=== PATIENT | male | born 1960 | race African-American/Black ===

== ENCOUNTER 2017-03-27 19:40 | Inpatient (IN) | payer OTHER, SELFPAY ==
[~2017-03-27 19:40] MED LIST: ISOVUE-370 76%-LOCM 1 ML ONE; Iopamidol 370 76% 50 ML VIAL FS ONE
[2017-03-27 20:59] LABS: #Lymphocytes 0.8 thou/uL (1.20-3.40); #Monocytes 0.1 thou/uL (0.11-0.59); #Neutrophils 6.7 thou/uL (1.40-6.50); %Basophils 0.6 % (0.0-1.0); %Eosinophils 0.3 % (0.0-10.0); %Lymphocytes 10.9 % (21.0-51.0); %Monocytes 1.1 % (0.0-10.0); %Neutrophils 86.9 % (42.0-75.0); Hemoglobin 14.6 g/dL (14.0-18.0); Mean Corpuscular HGB CONC 34.3 g/dL (32.0-36.0); Mean Corpuscular Hemoglobin 33.7 pg (27.0-31.0); Mean Corpuscular Volume 98.2 fl (80.0-94.0); Platelet Count 331 thou/uL (130-400); RBC Distribution Width 12.3 % (11.5-14.5); Red Blood Cell (RBC) Count 4.34 mill/uL (4.70-6.10); White Blood Cell (WBC) Count 7.7 thou/uL (4.8-10.8)
[2017-03-27 21:05] LABS: PTT 26.9 SEC (22.9-36.1)
[2017-03-27] MEDS ORDERED: Dexamethasone 4 mg/ml Vial ONE (21:14)
[2017-03-27] MEDS ORDERED: Ondansetron HCl/PF 4 MG/2 ML Vial ONE (21:14)
[2017-03-27 21:19] LABS: ALT (SGPT) 16 U/L (8-55); AST (SGOT) 23 U/L (5-34); Albumin 4.1 g/dL (3.5-5.0); Alkaline Phosphatase 80 U/L (40-150); Anion Gap 11 mmol/L (10-20); BUN (Urea Nitrogen) 10 mg/dL (8.4-25.7); Bilirubin, Total 0.5 mg/dL (0.2-1.2); Calc. Creatinine Clearance 0 mL/min (70-130); Calcium 9.4 mg/dL (7.8-10.44); Carbon Dioxide 24 mmol/L (22-29); Chloride 108 mmol/L (98-107); Estimated GFR-MDRD 78; Globulin 2.8 g/dL (2.4-3.5); Glucose 107 mg/dL (70-105); Potassium 3.9 mmol/L (3.5-5.1); Protein, Total 6.9 g/dL (6.0-8.3); Sodium 139 mmol/L (136-145)
--- NOTE | 2017-03-27 21:55 | RAD ---
PORTABLE CHEST: History: Pre-operative exam. FINDINGS: Lungs are clear. Heart and mediastinum are unremarkable. Vasculature is normal. IMPRESSION: No acute abnormality. POS: [facility]
--- NOTE | 2017-03-27 23:40 | CT ---
CT CHEST WITH IV CONTRAST CT ABDOMEN AND PELVIS WITH IV CONTRAST: Technique: Multiple axial tomograms were obtained through the chest, abdomen, and pelvis with IV enha ncement. History: Intracranial mass. Assess for metastasis. FINDINGS: CT CHEST: Lung neal are well aerated. There is no evidence of pulmonary nodule or metastasis. Mediastinum is unremarkable. Bony thorax unremarkable. IMPRESSION: Unremarkable CT chest. CT ABDOMEN AND PELVIS: Liver and spleen unremarkable. Tiny cyst in the superior lobe of the liver which is subcentimeter. No evidence of metastatic lesion. The adrenal glands appear normal. Kidneys are unremarkable. Small bowel loops appear normal. Appendix is normal. Colon unremarkable. Aorta is unremarkable. No adenopathy identified. Osseous structures unremarkable. IMPRESSION: No acute process identified. No evidence of intraabdominal metastasis. POS: [facility]
[2017-03-27] MEDS ORDERED: D5 1/2 NS w/20 mEq KCL 1,000 ML IV SCH (23:45)
[2017-03-27] MEDS ORDERED: Ondansetron ODT 4 MG TAB SL PRN (23:51)
[2017-03-27] MEDS ORDERED: Ondansetron HCl/PF 4 MG/2 ML Vial IVP PRN (23:51)
--- NOTE | 2017-03-28 00:59 | CON ---
DATE OF CONSULTATION: 03/27/2017 ATTENDING PHYSICIAN: Dr. Leonid Dacosta. HISTORY OF PRESENT ILLNESS: The patient is a 56-year-old -Gren[place] male with a past medical h istory of anxiety, otherwise healthy, who presents as a transfer from [facility] for new-onset righ t temporal mass. Patient reports that he has had intermittent headaches which he describes as migrai tong over the past several months that are typically resolved with [id number] NSAIDs. He descri bes his headache as a global pressure behind his eyes. Over the past week, he reports progressively worsening of his headache with new-onset balance instability with walking. He presented to the [facility] Emergency Department for further evaluation of these symptoms where noncontrast head CT was done which revealed a large right temporal mass with surrounding vasogenic edema as well as small amount of leftward shift. He was transferred to [facility] for further management. Neurosurgery was c alled to consult on the case. I am seeing in the patient at bedside, he is awake and oriented x4. He is in no acute distress. His pupils are equal and reactive. His extraocular movements are intact. He has normal cranial nerve e xam. He has normal finger to nose. No focal weakness is appreciated or other neurologic deficits. PAST MEDICAL HISTORY: Anxiety, otherwise healthy. PAST SURGICAL HISTORY: Carpal tunnel surgery, bilateral. SOCIAL HISTORY: The patient drinks socially. He is a former tobacco user, but quit several years ag o. He does not use any drugs. FAMILY HISTORY: Noncontributory. ALLERGIES: Patient has no known drug allergies. PHYSICAL EXAMINATION: VITAL SIGNS: Blood pressure is 128/70, pulse of 63, respirations rate is 20. He is 97.6, temperatur e. He is 99% on room air. CONSTITUTIONAL: Comfortable in no acute distress. HEAD: Normocephalic, atraumatic. EYES: PERRLA. Extraocular movements are intact. Sclerae White. ENT: Oral mucosa is pink intact and moist. He has a normal voice. NECK: Nontender to palpation. Free active range of motion, no meningismus or nuchal rigidity. RESPIRATORY: The patient is breathing comfortably. He has symmetric chest expansion. No evidence o f dyspnea. CARDIOVASCULAR: Regular rate and rhythm. MUSCULOSKELETAL: He has good muscle tone to the bilateral upper left lower extremities. Free active range of motion of all extremities. No focal weakness is appreciated. NEUROLOGIC: The patient is A and O x4. Normal cranial nerve exam. Normal [id number]. He has n ormal speech. No focal neurologic deficits are appreciated. ASSESSMENT AND PLAN: Patient has had progressively worsening headaches over the last few months sign ificantly worsened over the last week with a noncontrast head CT tonight that shows large right tempo ral mass with surrounding vasogenic edema and leftward shift approximately 1 mm. We will recommend t he patient to begin Decadron 10 mg now and 4 mg q.6 hours. He will be admitted to the medicine [facility] and will recommend further evaluation with MRI of the brain with and without contrast for further characterization of the mass. I have also ordered a CT of the chest, abdomen, and pelvis for further oncology workup. The patient will also be started on a H2 nghia considering the steroids, which w e are initiating for GI protection. I have discussed this plan with Dr. Dacosta who is in agreement . Please reach out to Neurosurgery Service for additional questions or concerns.
[2017-03-28] MEDS: Dexamethasone 4 mg/ml Vial SLOW IVP SCH ×2 (03:09→10:32)
[2017-03-28] MEDS ORDERED: Morphine 5 MG/ML SYRINGE SLOW IVP PRN (06:31)
[2017-03-28] MEDS ORDERED: Loratadine 10 MG TAB PO PRN (08:27)
[2017-03-28] MEDS ORDERED: hydrALAZINE 20 MG/ML VIAL SLOW IVP PRN (08:27)
[2017-03-28] MEDS ORDERED: Acetaminophen 325 MG TAB PO PRN (08:27)
[2017-03-28] MEDS ORDERED: Ondansetron HCl/PF 4 MG/2 ML Vial IVP PRN (08:27)
[2017-03-28] MEDS ORDERED: Diabetic Tussin 200 MG/10 ML UDCUP PO PRN (08:27)
[2017-03-28] MEDS ORDERED: Benzonatate 100 MG CAP PO PRN (08:27)
[2017-03-28] MEDS ORDERED: Bisacodyl 5 MG TAB PO PRN (08:27)
[2017-03-28] MEDS ORDERED: Mag-Al 1200 mg/1200 mg/30 ML UDCUP PO PRN (08:27)
[2017-03-28] MEDS ORDERED: traMADol HCl 50 MG TAB PO PRN (08:27)
[2017-03-28] MEDS ORDERED: Calcium Carbonate 500 MG ChewTAB PO PRN (08:27)
[2017-03-28] MEDS ORDERED: Nitroglycerin 0.4 MG TAB (25 Tab Bottle) SL PRN (08:27)
[2017-03-28] MEDS ORDERED: Lorazepam 1 MG TAB PO PRN (08:27)
[2017-03-28] MEDS ORDERED: Senokot 8.6 MG TAB PO PRN (08:27)
[2017-03-28] MEDS ORDERED: cloNIDine 0.1 MG TAB PO PRN (08:27)
[2017-03-28] MEDS ORDERED: Enoxaparin Sodium 40 MG/0.4 ML SYRINGE SC SCH (09:00)
[2017-03-28] MEDS: Famotidine/PF 20 mg/2ml Vial SLOW IVP SCH ×2 (10:30→20:31)
--- NOTE | 2017-03-28 12:09 | MRI ---
MRI BRAIN WITH AND WITHOUT CONTRAST: DATE: 03/28/17 HISTORY: 56-year-old male with right temporal brain mass. COMPARISON: None. TECHNIQUE: Multiple sequences obtained in axial, sagittal, and coronal planes; pre and post IV injection of gado linium-based contrast agent: 20 mL MultiHance. FINDINGS: Centered in the mid portion of the operculum of the right temporal lobe, there is an approximately 3. 5 x 4 x 4 cm intra-axial mass, with the majority of the volume of the tumor having proteinaceous flui d, surrounded by a thin, but irregular complete rim of enhancement. There is no associated hemorrhage or restricted diffusion. There is a moderate to severe amount of surrounding vasogenic edema involvi ng essentially the entire right operculum, and extending into the right thalamus, posterior limb of r ight internal capsule, and posterior aspect of right external capsule. This causes mass effect, expan ding the operculum, distorting the right sylvian fissure, distorting and compressing the right latera l ventricle, and shifting the septum pellucidum to left of midline by 0.8 cm. Nearby, in the anterior aspect of the right temporal lobe, there is a much smaller heterogeneously en hancing mass, also with necrotic cystic internal contents, measuring approximately 1.5 x 1.5 x 1 cm. Abutting the lateral surface of this second mass, there is a third tiny enhancing neoplastic intraaxi al mass measuring 0.5 x 0.5 x 0.5 cm, which abuts the right lateral temporal pial surface. These two smaller neoplastic lesions are also surrounded by vasogenic edema that is inseparable from the larger vasogenic edema arising from the larger mass. There are no enhancing masses in the brainstem, cerebe llum, or left cerebral hemisphere. No evidence of recent or remote intra-axial hemorrhage. Incidental ly, there is calcified plaque versus calcified en plaque meningioma involving the interhemispheric fa lx, measuring approximately 1 x 0.5 x 1.5 cm, with no adjacent vasogenic edema. IMPRESSION: 1. 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 The largest one is 4 cm in greatest dimension and causes a significant amount of vasogenic safia ma, mass effect, and mild to moderate subfalcine herniation. 2. The other two are much smaller. 3. These could either represent metastatic lesions or a primary intra-axial malignant neoplasm with two adjacent satellite lesions. STEPH Cruz POS: [facility]
--- NOTE | 2017-03-28 13:56 | HP ---
DATE OF ADMISSION: 03/28/2017 CHIEF COMPLAINT: Headache and instability. PRIMARY CARE PHYSICIAN: None. The patient has not seen a physician in multiple years. HISTORY OF PRESENT ILLNESS: Mr. Underwood is a very pleasant 56-year-old Afro-Mongolian male without any significant past medical history, who presented to the emergency room with the above-mentioned compl aints. History is mainly obtained by the patient himself and electronic medical records have been re viewed. Mr. Underwood has been feeling fine up until like few days ago. He has been having some nonspecific hea dache for few days, but he ignored it. He eventually went to the outside emergency room for migraine for [address] [place] A [address] scan was done there, which showed a large temporal mass on the right side with surrounding edema. There is also some leftward shift on the CT scan. The patient endorses night sweats, weight loss of about 20 pounds for the last 2 months, and poor appetite. He has also been having some problems with stability and says that he is swaying or going to fall. Otherwise, he denies any other recent illnesses. Denies any paraesthesias or muscle weakness. He denies any visi on changes or any difficulty with speech or swallowing. Upon presentation to our emergency room, his blood pressure was 142/87 with a pulse of 65 and he was hemodynamically stable. Given the findings of the CT scan, Neurosurgery was contacted by the emergen cy room physician and they have seen the patient and planned for further evaluation. He is now being admitted to Internal Medicine service. PAST MEDICAL HISTORY: Anxiety, otherwise none. PAST SURGICAL HISTORY: Carpal tunnel surgery, bilateral. SOCIAL HISTORY: He is and lives with his family. No history of drug, tobacco, or alcohol ab use. FAMILY HISTORY: No significant family history of any type of malignancy, stroke, or coronary artery disease. ALLERGIES: No known medication allergies. CURRENT MEDICATIONS: Trazodone 50 mg daily, sertraline 100 mg daily, Meloxicam 15 mg daily, and patricia min D3 400 units daily. REVIEW OF SYSTEMS: The following complete review of systems was negative, unless otherwise mentioned in the HPI or below: Constitutional: Weight loss or gain, ability to conduct usual activities. Sk in: Rash, itching. Eyes: Double vision, pain. ENT/Mouth: Nose bleeding, neck stiffness, pain, te nderness. Cardiovascular: Palpitations, dyspnea on exertion, orthopnea. Respiratory: Shortness of breath, wheezing, cough, hemoptysis, fever, or night sweats. Gastrointestinal: Poor appetite, abdo deb pain, heartburn, nausea, vomiting, constipation, or diarrhea. Genitourinary: Urgency, frequen cy, dysuria, nocturia. Musculoskeletal: Pain, swelling. Neurologic/Psychiatric: Anxiety, depressi on. Allergy/Immunologic: Skin rash, bleeding tendency. It is negative except for those mentioned i n the history and physical. LABORATORY EXAMINATION: His CBC is unremarkable. He does have neutrophils at 86%. His PT, PTT, and INR within normal limits. Serum chemistry showed a chloride of 108, otherwise unremarkable. LDH is elevated mildly at 255. Chest x-ray, by my review, has no evidence to suggest any pulmonary effusio n, edema, or infiltrate. He has undergone a CT scan of the chest, abdomen, and pelvis in the emergen cy room yesterday, which fortunately does not show any intraabdominal metastases or primary tumors. It is read by the radiologist as without any acute process. MRI of the brain was done earlier today, which confirms the finding of right temporal neoplastic tumor lesions. He has 3 intraaxial lesions with central necrosis and the largest one is 4 cm in greatest dimension with significant vasogenic ed jeanne, mass effect, and wlbo-og-qhnxdjip subfalcine herniation. PHYSICAL EXAMINATION: VITAL SIGNS: Most recent vital signs include temperature 98.3, pulse of 87, respirations 18, saturat ing 98% on room air, blood pressure 124/81. GENERAL EXAMINATION: He does appear anxious, but otherwise in no acute distress. HEENT EXAMINATION: Mucous membrane is moist and pink. No nystagmus noticed. Extraocular movements intact. Pupils equal and reactive to light and accommodation. NECK: Supple without any lymphadenopathy, JVD, or bruit. CHEST: Clear to auscultation without any wheezing, rales, or rhonchi. HEART: Rate and rhythm are regular without any murmur, rubs, or gallops. ABDOMEN: Soft, nontender, nondistended with positive bowel sounds. NEUROLOGICAL EXAMINATION: Nonfocal. Cranial nerves II through XII grossly intact. No facial droop noticed. He has 5/5 muscle strength bilaterally. Wkqajj-ev-ocns testing is intact. SKIN: Free of any rashes or bruises. Feels warm and dry to touch. PSYCHIATRIC: Mild anxiety noticed. IMPRESSION AND PLAN: 1. Right temporal lesion, new diagnosis. This is most likely a malignant lesion. Neurosurgery has been consulted and he has been started on Decadron to reduce the swelling. We will continue symptoma tic and supportive care. We will consult palliative care team for emotional support. Further manage ment as per the neurosurgical team. We will have physical therapy evaluate the patient given his fin dings of instability. 2. Headache. We will add p.r.n. medications. 3. History of anxiety and depression. We will restart his home medication of trazodone and sertrali ne at this time. 4. Deep venous thrombosis and gastrointestinal prophylaxis. DISPOSITION: Mr. Underwood is now being admitted for headache and has a new diagnosis of the right cere bral temporal lesion, likely malignant in nature. Further management will depend upon the recommenda tions from Neurosurgery. He may or may not need biopsy for treatment purposes and further staging. ESTIMATED LENGTH OF STAY: At this time, is 2 to 3 midnights. He will be admitted to stroke floor.
[2017-03-28] MEDS: traZODone HCl 50 MG TAB PO SCH (14:20)
[2017-03-28] MEDS ORDERED: traZODone HCl 50 MG TAB PO SCH (14:30)
[2017-03-28] MEDS: HYDROcodone/Acetaminophen 5/325 mg Tablet PO PRN (16:17)
[2017-03-28] MEDS: Dexamethasone 1 MG TAB PO SCH (17:27)
[2017-03-29 05:51] LABS: #Lymphocytes 2.1 thou/uL (1.20-3.40); #Monocytes 0.7 thou/uL (0.11-0.59); #Neutrophils 5.4 thou/uL (1.40-6.50); %Basophils 0.2 % (0.0-1.0); %Eosinophils 0.5 % (0.0-10.0); %Lymphocytes 25.9 % (21.0-51.0); %Neutrophils 65.5 % (42.0-75.0); Hemoglobin 13.5 g/dL (14.0-18.0); Mean Corpuscular HGB CONC 33.1 g/dL (32.0-36.0); Mean Corpuscular Hemoglobin 32.9 pg (27.0-31.0); Mean Corpuscular Volume 99.2 fl (80.0-94.0); Mean Platelet Volume 6.1 fL (7.4-10.4); Platelet Count 301 thou/uL (130-400); RBC Distribution Width 12.4 % (11.5-14.5); Red Blood Cell (RBC) Count 4.12 mill/uL (4.70-6.10); White Blood Cell (WBC) Count 8.2 thou/uL (4.8-10.8)
[2017-03-29 06:14] LABS: Anion Gap 9 mmol/L (10-20); BUN (Urea Nitrogen) 9 mg/dL (8.4-25.7); Calc. Creatinine Clearance 105 mL/min (70-130); Calcium 9.1 mg/dL (7.8-10.44); Carbon Dioxide 29 mmol/L (22-29); Chloride 106 mmol/L (98-107); Estimated GFR-MDRD Greater than 90; Glucose 106 mg/dL (70-105); Potassium 3.7 mmol/L (3.5-5.1); Sodium 140 mmol/L (136-145)
[2017-03-29] MEDS ORDERED: Bacitracin Zinc Ointment 30 gm TUBE ONE (08:41)
[2017-03-29] MEDS ORDERED: Papaverine 60 MG/2 ML VIAL ONE (08:41)
[2017-03-29] MEDS ORDERED: CHOLECALCIFEROL 400 UNIT PO SCH (09:00)
[2017-03-29] MEDS ORDERED: CEFAZOLIN/Water 2 GM/20 ML SYRINGE ONE (09:03)
[2017-03-29] MEDS ORDERED: Fentanyl 100 MCG/2 ML VIAL ONE ×2 (09:35→10:39)
[2017-03-29] MEDS ORDERED: Mannitol 12.5 GM/50 ML ONE ×2 (10:27→15:38)
[2017-03-29] MEDS ORDERED: manNITOL 20% 0 ML ONE (10:39)
[2017-03-29] MEDS ORDERED: HYDROmorphone 0.5 MG/0.5 ML SYRINGE ONE ×4 (10:48→13:03)
[2017-03-29] MEDS ORDERED: Rocuronium Bromide 50 MG/5 ML VIAL ONE (12:15)
--- NOTE | 2017-03-29 13:24 | OP ---
DATE OF PROCEDURE: 03/29/2017 SURGEON: Leonid Dacosta M.D. TRACTOR OPERATOR BATTERY: Malik Santiago PROCEDURE PERFORMED: Stereotactic intracranial navigation, right craniotomy and tumor resection, ope rating microscope. PROCEDURE IN DETAIL: The patient was brought into the operating room, intubated. He was positioned in the thierry head refrigeration engineer, turned to the left exposing the right frontotemporal region. The StopTheHackeric navigation system was then registered and used for planning the incision and craniotomy. A pratik dard curvilinear incision was made and flapped anteriorly. A craniotomy was performed in the tempora l aspect were extended with a craniectomy. We did identify some of the right frontal sinus that was exposed. This was packed with Gelfoam and reinforced with DuraSeal fibrin sealant at the end of the case. Next, the dura was reflected and flapped anteriorly. A corticotomy was made in the right temp oral region using the intracranial navigation, we identified the tumor quite easily. Some of the pos terior wall was sent for pathology and suggested high grade glioma. Next, we entered the tumor cavit y and aspirated cyst contents. We next resected the cyst wall, it had the appearance of a high grade glioma without discrete margins. We resected approximately half of the cyst wall leaving the superi or and deep aspects given their proximity to the middle cerebral artery and eloquent white matter tra cks. I would estimate approximately 60% of the 50%-60% of the main tumor wall was resected and all o f its contents. When I extended our exposure into the temporal lobe via the same corticotomy ludmilaat bogdan encountered the satellite enhancing lesions anteriorly. These were resected in their entirety. In between these lesions did seem to be some potentially neoplastic gliomatous appearing tissue. Thi s was resected in part, but without any clear margins. Hemostasis was then secured and the dura was reinforced with DuraSeal artificial dura and the skull was replaced with titanium microplates and scr ews and the scalp was repaired in anatomic layers.
[2017-03-29] MEDS: traZODone HCl 50 MG TAB PO SCH (14:51)
[2017-03-29] MEDS: Famotidine/PF 20 mg/2ml Vial SLOW IVP SCH ×2 (14:51→20:16)
[2017-03-29] MEDS: Cholecalciferol (Vitamin D3) 400 UNITS TAB PO SCH (14:51)
[2017-03-29] MEDS: Dexamethasone 1 MG TAB PO SCH (14:52)
[2017-03-29] MEDS: Dexamethasone 4 mg/ml Vial SLOW IVP SCH ×2 (14:59→20:16)
[2017-03-29] MEDS ORDERED: Dexamethasone 20 MG/5 ML VIAL ONE (15:38)
[2017-03-29] MEDS ORDERED: Propofol 200 MG/20 ML VIAL ONE (15:38)
[2017-03-29] MEDS ORDERED: Lidocaine 1% PF 5 ML VIAL ONE (15:38)
[2017-03-29] MEDS ORDERED: Ondansetron HCl/PF 4 MG/2 ML Vial ONE (15:38)
[2017-03-29] MEDS ORDERED: PHENYLEPHRINE-NS 100 MCG/ML 10 ML SYRINGE ONE (15:38)
[2017-03-29] MEDS ORDERED: Glycopyrrolate 0.2 MG/ML 5 ML SYRINGE ONE (15:38)
[2017-03-29] MEDS ORDERED: Labetalol 100 MG/20 ML MDV ONE (15:38)
--- NOTE | 2017-03-29 16:26 | PDOC.PN ---
- Subjective Encounter Start Date: 03/29/17 Encounter Start Time: 16:25 Subjective: s/p crainectomy & tumor resection.has some pain at site,but Ok otherwise - Objective MAR Reviewed: Yes Vital Signs & Weight: Vital Signs (12 hours) Temp Pulse Resp Pulse Ox 03/29/17 15:11 98.1 F 58 L 19 95 03/29/17 15:00 98.1 F Weight Weight 201 lb 11.2 oz Most Recent Monitor Data Heart Rate from ECG 60 NIBP 113/71 NIBP BP-Mean 87 Respiration from ECG 15 SpO2 96 I&O: 03/28/17 03/29/17 03/30/17 06:59 06:59 06:59 Intake Total 1947 1180 Output Total 195 Balance 1947 1180 -195 Result Diagrams: 03/29/17 05:18 03/29/17 05:18 Radiology Reviewed by me: Yes Phys Exam - Physical Examination Constitutional: NAD HEENT: PERRLA, moist MMs, sclera anicteric, oral pharynx no lesions Neck: no nodes, no JVD, supple, full ROM Respiratory: no wheezing, no rales, no rhonchi, clear to auscultation bilateral Cardiovascular: RRR, no significant murmur Gastrointestinal: soft, non-tender, no distention, positive bowel sounds Musculoskeletal: no edema, pulses present Neurological: non-focal, normal sensation, moves all 4 limbs Psychiatric: normal affect, A&O x 3 Skin: no rash Dx/Plan (1) Right temporal lobe mass Code(s): R22.0 - LOCALIZED SWELLING, MASS AND LUMP, HEAD Status: Acute Comment: s/p resection ,almost complete (2) Headache Code(s): R51 - HEADACHE Status: Acute Qualifiers: Intractability: not intractable - Plan plan discussed w/ family, DVT proph w/SCDs Keppra for seizure prophylaxis.Decadron for edema.NS following -: Neuro checks. -: HD stable.awaiting Biposy results.cayetano high grade GBM -: am labs * . Review of Systems - Review of Systems Constitutional: negative: fever, chills, sweats, weakness, malaise, other Respiratory: negative: Cough, Dry, Shortness of Breath, Hemoptysis, SOB with Excertion, Pleuritic Pain, Sputum, Wheezing Cardiovascular: negative: chest pain, palpitations, orthopnea, paroxysmal nocturnal dyspnea, edema, light headedness, other Gastrointestinal: negative: Nausea, Vomiting, Abdominal Pain, Diarrhea, Constipation, Melena, Hematochezia, Other Genitourinary: negative: Dysuria, Frequency, Incontinence, Hematuria, Retention , Other Musculoskeletal: negative: Neck Pain, Shoulder Pain, Arm Pain, Back Pain, Hand Pain, Leg Pain, Foot Pain, Other Neurological: negative: Weakness, Numbness, Incoordination, Change in Speech, Confusion, Seizures, Other - Medications/Allergies Allergies/Adverse Reactions: Allergies Allergy/AdvReac Type Severity Reaction Status Date / Time No Known Drug Allergies Allergy Verified 03/28/17 00:06 Medications: Current Medications Acetaminophen (Tylenol) 650 mg PO Q4H PRN PRN Reason: Headache/Fever or Pain Hydrocodone Bitart/Acetaminophen (Wingina 5/325) 1 tab PO Q4H PRN PRN Reason: Moderate Pain (4-6) Last Admin: 03/28/17 16:17 Dose: 1 tab Al Hydroxide/Mg Hydroxide (Maalox) 30 ml PO Q6H PRN PRN Reason: Heartburn or Indigestion Benzonatate (Tessalon) 100 mg PO Q4H PRN PRN Reason: Cough Bisacodyl (Dulcolax) 10 mg PO DAILYPRN PRN PRN Reason: Constipation Calcium Carbonate (Tums) 1,000 mg PO Q4H PRN PRN Reason: Heartburn or Indigestion Cholecalciferol (Vitamin D) 400 units PO DAILY [facility] Last Admin: 03/29/17 14:51 Dose: Not Given Clonidine (Catapres) 0.1 mg PO Q4H PRN PRN Reason: Systolic BP > 160 Dexamethasone (Decadron) 4 mg PO 1300 [facility] Stop: 03/30/17 13:01 Dexamethasone (Decadron) 4 mg SLOW IVP Q6H [facility] Stop: 03/30/17 08:01 Last Admin: 03/29/17 14:59 Dose: 4 mg Dexamethasone (Decadron) 4 mg PO BID [facility] Stop: 04/01/17 21:01 Dexamethasone (Decadron) 2 mg PO BID [facility] Stop: 04/04/17 21:01 Famotidine (Pepcid) 20 mg SLOW IVP BID [facility] Last Admin: 03/29/17 14:51 Dose: Not Given Guaifenesin (Robitussin Sf) 200 mg PO Q4H PRN PRN Reason: Cough Hydralazine HCl (Apresoline) 10 mg SLOW IVP Q4H PRN PRN Reason: Systolic BP > 180 Cefazolin Sodium/Dextrose (Ancef) 50 mls @ 100 mls/hr IVPB 0100,1700 [facility] Stop: 03/30/17 01:29 Levetiracetam (Keppra) 500 mg PO BID [facility] Loratadine (Claritin) 10 mg PO DAILYPRN PRN PRN Reason: Sinus Symptoms Lorazepam (Ativan) 1 mg PO Q4H PRN PRN Reason: Anxiety/Agitation Morphine Sulfate (Morphine) 2 mg SLOW IVP Q4H PRN PRN Reason: Chest Pain/BP Elevations Last Admin: 03/28/17 06:37 Dose: 2 mg Nitroglycerin (Nitrostat) 0.4 mg SL Q5MIN PRN PRN Reason: Chest Pain Ondansetron HCl (Zofran) 4 mg IVP Q6H PRN PRN Reason: Nausea/Vomiting Senna (Senokot) 2 tab PO HSPRN PRN PRN Reason: Constipation Sertraline HCl (Zoloft) 100 mg PO DAILY [facility] Last Admin: 03/29/17 14:51 Dose: Not Given Sodium Chloride (Flush - Normal Saline) 10 ml IVF Q12HR [facility] Last Admin: 03/29/17 14:51 Dose: Not Given Sodium Chloride (Flush - Normal Saline) 10 ml IVF PRN PRN PRN Reason: Saline Flush Tramadol HCl (Ultram) 50 mg PO Q4H PRN PRN Reason: Moderate Pain (4-6) Trazodone HCl (Desyrel) 50 mg PO DAILY [facility] Last Admin: 03/29/17 14:51 Dose: Not Given
[2017-03-29] MEDS ORDERED: CEFAZOLIN 1 GM, Syringe 2.5 ML in Sterile Water 7.5 ML SLOW IVP SCH (17:00)
[2017-03-29] MEDS: levETIRAcetam 500 MG TAB PO SCH (20:16)
[2017-03-29] MEDS: HYDROcodone/Acetaminophen 5/325 mg Tablet PO PRN (20:16)
[2017-03-29] MEDS ORDERED: CEFAZOLIN 1 GM VIAL SLOW IVP SCH (22:00)
[2017-03-30] MEDS: Dexamethasone 4 mg/ml Vial SLOW IVP SCH ×2 (01:35→08:32)
[2017-03-30 04:07] LABS: Hemoglobin 12.8 g/dL (14.0-18.0)
[2017-03-30 06:24] VITALS: BMI 24.0
[2017-03-30] MEDS: levETIRAcetam 500 MG TAB PO SCH ×2 (08:29→20:37)
[2017-03-30] MEDS: traZODone HCl 50 MG TAB PO SCH (08:29)
[2017-03-30] MEDS: HYDROcodone/Acetaminophen 5/325 mg Tablet PO PRN (08:30)
[2017-03-30] MEDS: Famotidine/PF 20 mg/2ml Vial SLOW IVP SCH (08:31)
[2017-03-30] MEDS: Cholecalciferol (Vitamin D3) 400 UNITS TAB PO SCH (08:31)
[2017-03-30] MEDS ORDERED: Dexamethasone 4 MG TAB PO SCH ×2 (09:00→13:00)
--- NOTE | 2017-03-30 10:45 | CON ---
DATE OF CONSULTATION: 03/30/2017 SERVICE: Pulmonary Medicine. REASON FOR CONSULTATION: ICU patient. HISTORY OF PRESENT ILLNESS: The patient is a 56-year-old -[place] male with past medical history significant for migraine headache that slowly increased and persisted over a period of several weeks. Ultimately, he is discovered to have a brain lesion. He is postop day #1 from surgical excision of that brain lesion. Otherwise, he has returned to his usual state of health. He has incisional pain which is appropriate, but his previously noted migraine headache has resolved. He denies any nausea, vomiting, chest pain, shortness of breath, fevers or chills. He does not have cough or sputum production. He does not have any dyspnea. He has no known lung problems. He is going to be considered for transition out of ICU today. PAST MEDICAL HISTORY: 1. Anxiety disorder. 2. Brain mass, pathology currently pending. PAST SURGICAL HISTORY: 1. Carpal tunnel surgery, bilateral. 2. Right craniotomy and tumor resection. SOCIAL HISTORY: Negative for alcohol, tobacco or illicit drug use. He has no exposure to chemicals, dust asbestos or tuberculosis. He is and lives with his family and is fully independent in his ADLs. FAMILY HISTORY: Noncontributory. ALLERGIES: No known drug allergies. MEDICATIONS: List of his inpatient medications was reviewed. No specific updates were made at this time. REVIEW OF SYSTEMS: General, head, ears, eyes, nose, throat, cardiovascular, respiratory, GI, , musculoskeletal, neurologic and skin is negative except as mentioned in the HPI. PHYSICAL EXAMINATION: VITAL SIGNS: Afebrile, pulse 84, blood pressure 120/90, respirations 17, saturation 97% on room air. GENERAL: Patient is awake, alert, in no apparent distress. LUNGS: Excellent air entry. There is no prolonged expiratory phase, wheezing, rhonchi or crackles. HEART: Normal rate, regular. ABDOMEN: Soft, nontender, and nondistended. Bowel sounds are positive. MUSCULOSKELETAL: No cyanosis or clubbing. No pitting in the bilateral lower extremities. NEUROLOGIC: Grossly nonfocal. LABORATORY DATA: WBC 8.2, hemoglobin 12.8 and roughly stable. Platelets 301, 000. INR 1.0. Basic metabolic profile and liver function studies are unremarkable. LDH was previously elevated at 255. IMAGIN. MRI of the brain demonstrates 3 intraaxial malignant neoplastic tumor lesions in the right temporal lobe with central necrosis, the largest measuring 4 cm. There is surrounding vasogenic edema and mass effect. Mild subfalcine herniation is also present. 2. CT of the chest, abdomen, and pelvis demonstrates no acute processes identified. No evidence of intraabdominal metastases. ASSESSMENT: 1. Brain mass, status post excision. 2. Headache, resolved. PLAN: The patient is stable for transition out of the ICU. Once he leaves the ICU, he will have no further requirements for inpatient Pulmonary or Critical Care opinion and I will sign off. Please call with additional questions or concerns if patient's condition deteriorates. 70 minutes have been devoted to this patient in various activities. I personally reviewed all imaging studies and laboratory data noted within this document. For at least half of this time, I was interacting with the patient at the bedside or coordinating care with the care team. For the remainder of the time I was immediately available to the patient in the hospital unit. STEVE
--- NOTE | 2017-03-30 14:01 | PDOC.PN ---
- Subjective Encounter Start Date: 03/30/17 Encounter Start Time: 14:00 Subjective: feels better..no new complaints - Objective MAR Reviewed: Yes Vital Signs & Weight: Vital Signs (12 hours) Temp Pulse Pulse Pulse Pulse Pulse Resp 03/30/17 12:00 98.7 F 03/30/17 09:07 67 75 03/30/17 08:13 76 70 67 66 03/30/17 08:00 98.4 F 87 16 03/30/17 04:00 98.5 F BP BP BP BP Pulse Ox Pulse Ox Pulse Ox 03/30/17 12:00 03/30/17 09:07 122/85 122/71 97 97 03/30/17 08:13 116/80 129/82 132/82 130/81 97 95 03/30/17 08:00 98 03/30/17 04:00 Pulse Ox Pulse Ox 03/30/17 12:00 03/30/17 09:07 03/30/17 08:13 95 96 03/30/17 08:00 03/30/17 04:00 Weight Weight 202 lb 13.204 oz Most Recent Monitor Data Heart Rate from ECG 71 NIBP 112/60 NIBP BP-Mean 76 Respiration from ECG 17 SpO2 96 I&O: 03/29/17 03/30/17 03/31/17 06:59 06:59 06:59 Intake Total 1180 543 480 Output Total 1635 500 Balance 1180 -1092 -20 Result Diagrams: 03/30/17 03:41 03/29/17 05:18 Phys Exam - Physical Examination Constitutional: NAD HEENT: PERRLA, moist MMs, sclera anicteric, oral pharynx no lesions Neck: no nodes, no JVD, supple, full ROM Respiratory: no wheezing, no rales, no rhonchi, clear to auscultation bilateral Cardiovascular: RRR, no significant murmur Gastrointestinal: soft, non-tender, no distention, positive bowel sounds Musculoskeletal: no edema, pulses present Neurological: non-focal, normal sensation, moves all 4 limbs Dx/Plan (1) Right temporal lobe mass Code(s): R22.0 - LOCALIZED SWELLING, MASS AND LUMP, HEAD Status: Acute Comment: s/p resection ,almost complete (2) Headache Code(s): R51 - HEADACHE Status: Acute Qualifiers: Intractability: not intractable - Plan PT/OT, DVT proph w/SCDs Tumor path is pending.clinically stable -: OK to move out of CCU -: DC when OK w NS. -: Op follow up needed. -: hemodynamically stable.cont supportive care * . Review of Systems - Review of Systems Constitutional: negative: fever, chills, sweats, weakness, malaise, other Respiratory: negative: Cough, Dry, Shortness of Breath, Hemoptysis, SOB with Excertion, Pleuritic Pain, Sputum, Wheezing Cardiovascular: negative: chest pain, palpitations, orthopnea, paroxysmal nocturnal dyspnea, edema, light headedness, other Gastrointestinal: negative: Nausea, Vomiting, Abdominal Pain, Diarrhea, Constipation, Melena, Hematochezia, Other Genitourinary: negative: Dysuria, Frequency, Incontinence, Hematuria, Retention , Other Musculoskeletal: negative: Neck Pain, Shoulder Pain, Arm Pain, Back Pain, Hand Pain, Leg Pain, Foot Pain, Other Neurological: negative: Weakness, Numbness, Incoordination, Change in Speech, Confusion, Seizures, Other - Medications/Allergies Allergies/Adverse Reactions: Allergies Allergy/AdvReac Type Severity Reaction Status Date / Time No Known Drug Allergies Allergy Verified 03/28/17 00:06 Medications: Current Medications Acetaminophen (Tylenol) 650 mg PO Q4H PRN PRN Reason: Headache/Fever or Pain Hydrocodone Bitart/Acetaminophen ([place] 5/325) 1 tab PO Q4H PRN PRN Reason: Moderate Pain (4-6) Last Admin: 03/30/17 08:30 Dose: 1 tab Al Hydroxide/Mg Hydroxide (Maalox) 30 ml PO Q6H PRN PRN Reason: Heartburn or Indigestion Benzonatate (Tessalon) 100 mg PO Q4H PRN PRN Reason: Cough Bisacodyl (Dulcolax) 10 mg PO DAILYPRN PRN PRN Reason: Constipation Calcium Carbonate (Tums) 1,000 mg PO Q4H PRN PRN Reason: Heartburn or Indigestion Cholecalciferol (Vitamin D) 400 units PO DAILY [facility] Last Admin: 03/30/17 08:31 Dose: 400 units Clonidine (Catapres) 0.1 mg PO Q4H PRN PRN Reason: Systolic BP > 160 Dexamethasone (Decadron) 4 mg PO BID [facility] Stop: 04/01/17 21:01 Dexamethasone (Decadron) 2 mg PO BID [facility] Stop: 04/04/17 21:01 Famotidine (Pepcid) 20 mg PO BID [facility] Guaifenesin (Robitussin Sf) 200 mg PO Q4H PRN PRN Reason: Cough Hydralazine HCl (Apresoline) 10 mg SLOW IVP Q4H PRN PRN Reason: Systolic BP > 180 Levetiracetam (Keppra) 500 mg PO BID [facility] Last Admin: 03/30/17 08:29 Dose: 500 mg Loratadine (Claritin) 10 mg PO DAILYPRN PRN PRN Reason: Sinus Symptoms Lorazepam (Ativan) 1 mg PO Q4H PRN PRN Reason: Anxiety/Agitation Morphine Sulfate (Morphine) 2 mg SLOW IVP Q4H PRN PRN Reason: Chest Pain/BP Elevations Last Admin: 03/28/17 06:37 Dose: 2 mg Nitroglycerin (Nitrostat) 0.4 mg SL Q5MIN PRN PRN Reason: Chest Pain Ondansetron HCl (Zofran) 4 mg IVP Q6H PRN PRN Reason: Nausea/Vomiting Senna (Senokot) 2 tab PO HSPRN PRN PRN Reason: Constipation Sertraline HCl (Zoloft) 100 mg PO DAILY [facility] Last Admin: 03/30/17 08:30 Dose: 100 mg Sodium Chloride (Flush - Normal Saline) 10 ml IVF Q12HR [facility] Last Admin: 03/30/17 08:32 Dose: 10 ml Sodium Chloride (Flush - Normal Saline) 10 ml IVF PRN PRN PRN Reason: Saline Flush Tramadol HCl (Ultram) 50 mg PO Q4H PRN PRN Reason: Moderate Pain (4-6) Trazodone HCl (Desyrel) 50 mg PO DAILY [facility] Last Admin: 03/30/17 08:29 Dose: 50 mg
[2017-03-30] MEDS: Famotidine 20 MG TAB PO SCH (20:37)
[2017-03-30] MEDS: Dexamethasone 4 MG TAB PO SCH (20:38)
[2017-03-31] MEDS: HYDROcodone/Acetaminophen 5/325 mg Tablet PO PRN ×2 (06:45→20:55)
[2017-03-31] MEDS: Cholecalciferol (Vitamin D3) 400 UNITS TAB PO SCH (08:42)
[2017-03-31] MEDS: traZODone HCl 50 MG TAB PO SCH (08:43)
[2017-03-31] MEDS: levETIRAcetam 500 MG TAB PO SCH ×2 (08:43→20:54)
[2017-03-31] MEDS: Famotidine 20 MG TAB PO SCH ×2 (08:43→20:54)
[2017-03-31] MEDS: Dexamethasone 4 MG TAB PO SCH ×2 (08:44→20:55)
--- NOTE | 2017-03-31 13:42 | PDOC.PN ---
- Subjective Encounter Start Date: 03/31/17 Encounter Start Time: 13:25 Subjective: f/u s/p R craniotomy with surgical resection of high grade glioma POD #2. -: Some MITCHELL and R facial swelling. - Objective MAR Reviewed: Yes Vital Signs & Weight: Vital Signs (12 hours) Temp Pulse Resp BP Pulse Ox 03/31/17 11:49 98.5 F 75 20 114/73 95 03/31/17 08:00 97.8 F 76 21 H 115/77 97 03/31/17 04:36 97.5 F L 85 19 130/78 97 Weight Weight 202 lb 13.204 oz Most Recent Monitor Data Heart Rate from ECG 67 NIBP 114/55 NIBP BP-Mean 73 Respiration from ECG 16 SpO2 97 I&O: 03/30/17 03/31/17 04/01/17 06:59 06:59 06:59 Intake Total 543 1420 Output Total 1635 3125 400 Balance -1092 -1705 -400 Result Diagrams: 03/30/17 03:41 03/29/17 05:18 Additional Labs: Brain Pathology - necrotic high grade glioma Phys Exam - Physical Examination Constitutional: NAD scalp with dressing in place HEENT: PERRLA, oral pharynx no lesions Neck: no JVD, supple Respiratory: no wheezing, clear to auscultation bilateral Cardiovascular: RRR Gastrointestinal: soft, non-tender, no distention, positive bowel sounds Musculoskeletal: no edema, pulses present Neurological: normal sensation, moves all 4 limbs Psychiatric: A&O x 3 Skin: normal turgor, cap refill <2 seconds Dx/Plan (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 Code(s): C71.9 - MALIGNANT NEOPLASM OF BRAIN, UNSPECIFIED Status: Acute Comment: s/p R craniotomy with resection of approximately 50-60% of tumor, POD # 2, pain control, Oncology consult (2) Headache Code(s): R51 - HEADACHE Status: Acute Qualifiers: Intractability: not intractable Comment: continue pain control as indicated (3) Right temporal lobe mass Code(s): R22.0 - LOCALIZED SWELLING, MASS AND LUMP, HEAD Status: Acute Comment: s/p resection ,almost complete (4) Anxiety Code(s): F41.9 - ANXIETY DISORDER, UNSPECIFIED Status: Chronic - Plan plan discussed w/ family, PT/OT, social work specialist, out of bed/ambulate, DVT proph w/SCDs Continue Decadron -: Continue Keppra 500mg BID -: Consult Medical Oncology service for mgmt recommendations -: Palliative Care consult -: OOB/PT * Likely home in 24-48h
--- NOTE | 2017-03-31 23:34 | CON ---
DATE OF CONSULTATION: 03/31/2017. REASON FOR CONSULTATION: Primary brain tumor. HISTORY: This is a 56-year-old -[place] male who was in his usual state of health until 4-5 days prior to hospitalization through the emergency room on 03/27/2017. He was admitted with headach e and unsteadiness of gait. He was evaluated with CT scan of chest, abdomen, and pelvis, which was e ssentially normal. Brain MRI showed a 4 x 4 x 3.5-cm mass in right temporal lobe with vasogenic sancho a. There was midline shift by 0.8 cm. Additionally, there was a 1.5 x 1.5 x 1-cm mass with necrotic internal content in anterior aspect of the right temporal lobe and there was a third enhancing mass measuring 0.5 x 0.5 x 0.5 cm abutting right lateral temporal pial surface. The main mass seemed to b e filled with proteinaceous material with thin and irregular rim of enhancement. The patient underwe nt right craniotomy with tumor resection on 03/29/2017. 50%-60% of the main tumor was resected. I b elieve the other adjacent tumor masses were also resected. Pathology showed necrotic tumor consisten t with high-grade glioma. The case has been sent to [facility] for consultation. The patient is feeling better now and is able to ambulate in the natarajan. He does not have headache anymore. CURRENT MEDICATIONS: Hydrocodone with acetaminophen, Decadron 4 mg p.o. b.i.d., Pepcid 20 mg p.o. b. i.d., Keppra 500 mg p.o. b.i.d., Claritin, Zoloft 100 mg p.o. daily, trazodone 50 mg p.o. daily, and Tessalon Perles p.r.n. PAST MEDICAL HISTORY: Anxiety. PAST SURGICAL HISTORY: Carpal tunnel repair, bilateral. PERSONAL, FAMILY, AND SOCIAL HISTORY: The patient is and lives with his family. His kids ar e grown and one of his daughters lives with him. He denies history of drug, tobacco, or alcohol abus e. He is a . There is no family history of cancer or blood disorders. REVIEW OF SYSTEMS: As above. Currently, he has developed narrowing of the palpebral fissure on the right side following surgery. PHYSICAL EXAMINATION: GENERAL: The patient appears appropriate for his age and is alert and oriented. VITAL SIGNS: Height 6 feet 5 inches, weight 202 pounds, BSA 2.2, temperature 98.5, pulse 75, respira tions 20, blood pressure 114/73. HEENT: Unremarkable except for what looks like ptosis on the right side. LYMPHATICS: There is no peripheral lymphadenopathy in cervical, supraclavicular, axillary, or inguin al area. CHEST: Clear to percussion and auscultation. HEART: Regular rhythm. S1 and S2. ABDOMEN: Soft without hepatosplenomegaly. EXTREMITIES: Without pedal edema. NEUROLOGIC: Exam shows normal motor function in all 4 extremities. LABORATORY DATA: CBC shows WBC of 8200 with hemoglobin of 13.5 grams and platelet count of 301,000. Differential shows 65.5% neutrophils and 25.9% lymphocytes. Chemistry profile shows normal BUN, cre atinine, calcium, AST, ALT, and alkaline phosphatase. Serum calcium is also normal. ASSESSMENT AND RECOMMENDATIONS: This patient seems to have high-grade glioma, status post resection. He has significant residual disease. I have asked him to call my office to make an appointment to see me in about 2 weeks. At that time, he will also be seen by radiation oncologist. By that time, [facility] opinion should be available. At that time, the primary treatment decision will be made, which most likely will consist of radiation therapy and Temodar. Thanks very much for allowing me to participate in this patient's care.
[2017-04-01] MEDS: Cholecalciferol (Vitamin D3) 400 UNITS TAB PO SCH (09:14)
[2017-04-01] MEDS: Dexamethasone 4 MG TAB PO SCH (09:15)
[2017-04-01] MEDS: Famotidine 20 MG TAB PO SCH (09:15)
[2017-04-01] MEDS: levETIRAcetam 500 MG TAB PO SCH (09:15)
[2017-04-01] MEDS: traZODone HCl 50 MG TAB PO SCH (09:15)
[2017-04-01] MEDS: HYDROcodone/Acetaminophen 5/325 mg Tablet PO PRN (09:17)
--- NOTE | 2017-04-01 10:46 | PRG ---
DATE OF SERVICE: 04/01/2017 Mr. Underwood is hospital day #5. He is doing well postoperatively. His wound is healing well with exp ected edema. Neurologically, he is intact and moving all extremities to command. His speech is flue nt. We are going to arrange for dismissal today and I have discussed this with both he and his famil y.
[2017-04-01 12:34] VITALS: BP 126/87; TEMP 98
--- NOTE | 2017-04-01 13:32 | PDOC.PN ---
- Subjective Encounter Start Date: 04/01/17 Encounter Start Time: 11:30 Subjective: feels better -: is amb in room - Objective MAR Reviewed: Yes Vital Signs & Weight: Vital Signs (12 hours) Temp Pulse Resp BP BP Pulse Ox 04/01/17 12:33 98.0 F 75 16 126/87 98 04/01/17 12:00 97.9 F 71 20 117/79 97 04/01/17 08:00 98.4 F 73 16 04/01/17 05:20 98.4 F 73 16 136/72 98 Weight Weight 202 lb Most Recent Monitor Data Heart Rate from ECG 67 NIBP 114/55 NIBP BP-Mean 73 Respiration from ECG 16 SpO2 97 I&O: 03/31/17 04/01/17 04/02/17 06:59 06:59 06:59 Intake Total 1420 960 Output Total 3125 400 Balance -1705 560 Result Diagrams: 03/30/17 03:41 03/29/17 05:18 Phys Exam - Physical Examination HEENT: PERRLA, moist MMs sutures intact over right scalp Neck: no JVD, supple Respiratory: no wheezing, no rales Cardiovascular: RRR, no significant murmur Gastrointestinal: soft, non-tender, positive bowel sounds Musculoskeletal: no edema, pulses present Neurological: non-focal, moves all 4 limbs Psychiatric: A&O x 3 Dx/Plan (1) Right temporal lobe mass Code(s): R22.0 - LOCALIZED SWELLING, MASS AND LUMP, HEAD Status: Acute Comment: s/p resection, likely glioma (2) Anxiety Code(s): F41.9 - ANXIETY DISORDER, UNSPECIFIED Status: Chronic - Plan neurostable -: has been cleared for dc by nsx -: to f/u with as adv -: histopath is pending [place] referal * .
--- NOTE | 2017-04-01 20:33 | DIS ---
DATE OF ADMISSION: 03/27/2017 DATE OF DISCHARGE: 04/01/2017 DISCHARGE DISPOSITION: To home. PRIMARY DISCHARGE DIAGNOSIS: Right temporal lobe mass, likely to be high grade glioma. PROCEDURES DONE DURING HOSPITALIZATION: The patient has had CT chest, abdomen, and pelvis done which did not reveal any acute process or evidence of metastasis. MRI brain showed malignant neoplastic t umor lesions in the right temporal lobe with central necrosis largest one was 4 cm in greatest dimens ion and causing significant amount of vasogenic edema, mass effect and mild to moderate subfalcine he rniation, there are 2 other smaller satellite lesions seen. The patient has had stereotactic intracr anial navigation with right craniotomy and tumor resection using operating microscope done by Dr. Mary hussein on 03/29/2017. Preliminary histopathology shows high grade glioma with necrotic tumor, H&H 12 and 37. LDH was 255. DISCHARGE MEDICATIONS: Decadron 2 mg p.o. twice daily, Hammond p.r.n. for pain, Keppra 500 mg p.o. twi ce daily, sertraline 100 mg p.o. daily, trazodone 50 mg p.o. daily. ALLERGIES: No known drug allergies. INPATIENT CONSULT: Dr. Dacosta for Neurosurgery. BRIEF COURSE DURING HOSPITALIZATION: Patient initially got admitted on the with complaints of he adache and some problems with swaying or sensation of about to fall. He initially went to [facility] where a CT brain done showed a temporal lobe mass. He was transferred here for higher level of ca re. MRI done confirmed the brain mass. The patient has had MRI done here which confirmed the right temporal lobe mass with central necrosis. He also had 2 other small satellite lesions. His CT of th e chest, abdomen, and pelvis with contrast did not reveal any primary or metastatic lesions anywhere. He has had consultation with Dr. Dacosta for Neurosurgery. Patient has had sterotactic right cran iotomy with 50-60% on the tumor wall resected and all of its contents. He has had a complete resecti on of the two satellite masses as well. His histopathology came back as consistent with high grade g lioma. The case is being sent to [facility] lab for consultation. An addendum will be reported by histopathology with final classification. He was also evaluated by Dr. Mckenna for Hematology/Onco logy. Post-surgery, patient is ambulating. He was placed on Keppra for seizure prevention. He is e ating and ambulating. He is being discharged home to follow up with Dr. Mckenna once all of his yamile or diagnosis is confirmed. He has been cleared by Dr. Hunt who was covering for Dr. Dacosta for d ischarge. Please see a face to face documentation on [facility] for the day of discharge.
[2017-04-02] MEDS ORDERED: Dexamethasone 1 MG TAB PO SCH (09:00)
== END 2017-04-01 12:45 | disposition home or self-care (01) | DRG 27 ==
LOC: ERS 19:40 → 2SE 20:39 → CCU 03-29 08:55 → SURG A 03-30 16:06
PROVIDERS: ADMIT Family Medicine; ATTEND Family Medicine
PROC: 00B70ZZ Excision of Cerebral Hemisphere, Open Approach (ICD-10-PCS; principal; 2017-03-29)
DX: C71.2 Malignant neoplasm of temporal lobe (principal); F41.9 Anxiety disorder, unspecified; Z87.891 Personal history of nicotine dependence
CPT/HCPCS: 36415; 70553; 71045; 71260; 74177; 80048; 80053; 83615; 85014; 85018; 85025; 85610; 85730; 88307; 88325; 88331; 88334; 93005; 96361; 96374; 96375; J2270; A4216; C1713; G8978-GP-CK; G8979-GP-CI; G8987-GO-CI; G8988-GO-CI; G8989-GO-CI; J0131; J0690; J1100; J1170; J1650; J2001; J2150; J2405; J2440; J2704; J3010; J7799; J8540; S0028

== ENCOUNTER 2017-08-14 16:32 | Outpatient (CLI) | payer OTHER ==
[~2017-08-14 16:32] MED LIST changes: +Gadobenate Dimeglumine 529 MG/1 ML (20ML VIAL) ONE; -ISOVUE-370 76%-LOCM 1 ML ONE; -Iopamidol 370 76% 50 ML VIAL FS ONE
--- NOTE | 2017-08-14 20:48 | MRI ---
MRI BRAIN WITH AND WITHOUT CONTRAST: DATE: 08/14/2017 HISTORY: Follow-up glioblastoma C71.2, status post partial resection. COMPARISON: 05/03/2017 TECHNIQUE: Multiple sequences obtained in axial, sagittal, and coronal planes; pre and post IV injection of gado linium-based contrast agent: MultiHance 14 mL. FINDINGS: The heterogeneously enhancing right temporal lobe intraaxial tumor mass, which was previously measure d as 3.4 x 4.3 x 4.1 cm, currently measures 3.3 x 4.1 x 3.6 cm (regarding the main enhancing portion) . Again noted are the right pterional craniotomy changes. There is, again, demonstration of a lateral process of the tumor that extends extracranially through one of the right temporal craniotomy defects , into the right scalp. The extracranial portion of this tumor is approximately 1 x 0.5 x 0.5 cm and has actually probably slightly shrunk. Previously, the right to left midline shift of the septum pe llucidum was up to 0.7 cm, at the level of the thalamus. Currently, it is 0.5 cm. However, the degr ee of vasogenic edema surrounding the tumor has slightly worsened since the previous MRI. There is d istortion of the lateral and third ventricles, but no obstructive hydrocephalus. No evidence of fallon r intracranial hemorrhage. There is restricted diffusion involving the central, necrotic portion of the tumor. On the 03/28/2017 MRI, there were three lesions, with a large main lesion and two small s atellite lesions. By the time of the 05/03/2017 MRI, they had all merged to become confluent with ea ch other into a single large mass. The tumor was very cystic on 03/28/2017 but became much more comp dede on 05/03/2017, and it remains so now. IMPRESSION: Right temporal lobe glioblastoma has slightly decreased in size. Although its mass effect has also s lightly improved, the degree of surrounding vasogenic edema has slightly worsened. STEPH Cruz POS: [facility]
== END 2017-08-14 16:33 | disposition home or self-care (01) ==
LOC: SCSMRI 16:32
PROVIDERS: ATTEND Radiology Radiation Oncology
DX: C71.2 Malignant neoplasm of temporal lobe (principal); Z98.890 Other specified postprocedural states
CPT/HCPCS: 70553; A9579

== ENCOUNTER 2017-11-07 10:45 | Outpatient (CLI) | payer OTHER ==
--- NOTE | 2017-11-07 13:31 | MRI ---
MRI BRAIN WITH AND WITHOUT CONTRAST: Date: 11/07/17 COMPARISON: 08/14/17. HISTORY: Glioblastoma. Status post radiation and resection. Follow-up imaging is requested. COMPARISON: 08/14/17. 03/28/17. TECHNIQUE: Brain MRI is performed with and without intravenous Gadolinium administration. Multisequential, multi planar imaging is performed. FINDINGS: Redemonstration of postsurgical change involving the right calvarium. There is underlying dural enhan cement, which is similar to the previous examination and is felt to represent postoperative/post-analisa tment change. Redemonstration of a cavitated lesion with peripheral nodular/thickened enhancement hilton suring 2.6 cm mediolateral x 3.3 cm anterior posterior x 2.9 cm craniocaudal. There is extension of e nhancement to the cortical surface and to the level of the calvarial defect. These findings are simil ar to the previous examination. Previously, this lesion measured 3.2 cm mediolateral x 4.1 cm anterio r posterior x 3.6 cm craniocaudal. There is some gyriform and sulcal enhancement posterior to this le lianet, unchanged. There is associated vasogenic edema of the right temporal lobe with sulcal effacemen t. There is some mass effect upon the right lateral ventricle. No significant midline shift. With reg ajnice to the left cerebrum, cortical alvarez-white matter differentiation is preserved. No evidence of hyd rocephalus. Remote lacunar infarcts are again noted. IMPRESSION: Redemonstration of a primary neoplasm involving the right temporal lobe. There are post-treatment tana nges. When compared to the prior examination, the degree of vasogenic edema has slightly decreased. A dditionally, the overall degree of enhancement has slightly decreased. Residual enhancement likely re presents post-treatment change/scar tissue, along with residual tumor. POS: [facility]
== END 2017-11-07 10:46 | disposition home or self-care (01) ==
LOC: MRI 10:45
PROVIDERS: ATTEND Internal Medicine Medical Oncology
DX: C71.2 Malignant neoplasm of temporal lobe (principal)
CPT/HCPCS: 70553; A9579

== ENCOUNTER 2018-06-09 16:03 | Emergency (ER) | payer MEDICARE ==
[2018-06-09] MEDS ORDERED: Dexamethasone 10 MG/ML VIAL ONE (17:03)
== END 2018-06-09 17:46 | disposition home or self-care (01) ==
LOC: ERS 16:03
DX: C71.9 Malignant neoplasm of brain, unspecified (principal); F32.9 Major depressive disorder, single episode, unspecified; F41.9 Anxiety disorder, unspecified; Z87.891 Personal history of nicotine dependence; Z79.899 Other long term (current) drug therapy
CPT/HCPCS: 96374; J1100

== ENCOUNTER 2018-06-25 14:48 | Inpatient (IN) | payer MEDICARE ==
[2018-06-25 15:07] LABS: #Eosinphils 0.1 thou/uL (0.0-0.7); #Lymphocytes 1.7 thou/uL (1.20-3.40); #Monocytes 0.4 thou/uL (0.11-0.59); #Neutrophils 4.3 thou/uL (1.40-6.50); %Basophils 0.5 % (0.0-1.0); %Eosinophils 1.4 % (0.0-10.0); %Lymphocytes 26.3 % (21.0-51.0); %Monocytes 6.7 % (0.0-10.0); %Neutrophils 65.2 % (42.0-75.0); Hemoglobin 14.5 g/dL (14.0-18.0); Mean Corpuscular Hemoglobin 32.4 pg (27.0-31.0); Mean Corpuscular Volume 95.4 fL (78.0-98.0); Mean Platelet Volume 6.5 fL (7.4-10.4); Platelet Count 277 thou/uL (130-400); RBC Distribution Width 12.7 % (11.5-14.5); Red Blood Cell (RBC) Count 4.48 mill/uL (4.70-6.10); White Blood Cell (WBC) Count 6.6 thou/uL (4.8-10.8)
--- NOTE | 2018-06-25 15:13 | CT ---
CT Brain WO Con: 06/25/2018 12:00 AM CLINICAL HISTORY: History of brain malignancy with slurred speech and left-sided weakness. IMAGING TECHNIQUE: Multiple CT images were obtained of the brain without IV contrast. COMPARISON: CT the brain without contrast dated June 09, 2018 and MR the brain with and without cont rast dated June 19, 2018. FINDINGS: Infarct: No acute infarct evident. Hemorrhage: There is worsening foci of hemorrhage involving the right frontal lobe mass lesion. There is worsening surrounding vasogenic edema within the right cerebral hemisphere with right to left midline shift of 9.9 mm.. Hydrocephalus: None.. Basal cisterns: Normal. Cerebral parenchyma: Normal. Midline shift: As above. Cerebellum: Normal. Brainstem: Normal. OTHER: Calvarium: There is stable postsurgical change of a right frontal temporal craniectomy.. Visualized Paranasal sinuses: Clear. Extracranial soft tissues:Normal IMPRESSION: Small punctate foci of hemorrhage involving the lateral right frontal lobe mass lesion with worsening surrounding vasogenic edema and worsening right to mid left midline shift of 9.92 mm. Recommend neurosurgical consultation. Findings called to Dr. Vicente at 3:08 PM on June 25, 2018.
--- NOTE | 2018-06-25 15:14 | RAD ---
Chest AP view INDICATION: Altered mental status and weakness with slurred speech COMPARISON: March 27, 2017 and June 09, 2018 FINDINGS: Lungs:The left costophrenic angle is excluded. The visualized lungs are clear. Cardiac silhouette pulmonary vasculature:The cardiomediastinal silhouette appears within normal limit s. Pleural spaces:Left costophrenic angle is excluded. Upper abdomen:No abnormality seen. Osseous structures: No acute osseous abnormality. IMPRESSION: No definite acute cardiopulmonary abnormality evident within the limitations of this exam .
[2018-06-25] MEDS ORDERED: Ondansetron PF 4 MG/2 ML Vial ONE (15:25)
[2018-06-25] MEDS ORDERED: Dexamethasone 10 MG/ML VIAL ONE ×2 (15:36→16:06)
[2018-06-25 15:37] LABS: Acetaminophen Less than 6.0 mcg/mL (10.0-30.0); Alcohol Less than 10 mg/dL (Less than 10); Salicylate Less than 8.0 mg/dL (15.0-30.0)
[2018-06-25 15:39] LABS: ALT (SGPT) 34 U/L (8-55); AST (SGOT) 23 U/L (5-34); Albumin 4.3 g/dL (3.5-5.0); Alkaline Phosphatase 70 U/L (40-150); Anion Gap 12 mmol/L (10-20); BUN (Urea Nitrogen) 8 mg/dL (8.4-25.7); Bilirubin, Total 0.5 mg/dL (0.2-1.2); CK (CPK) 208 U/L (30-200); Calc. Creatinine Clearance 0 mL/min (70-130); Calcium 9.9 mg/dL (7.8-10.44); Carbon Dioxide 27 mmol/L (22-29); Chloride 107 mmol/L (98-107); Estimated GFR-MDRD Greater than 90; Globulin 2.4 g/dL (2.4-3.5); Glucose 91 mg/dL (70-105); Lipase 35 U/L (8-78); Potassium 4.3 mmol/L (3.5-5.1); Protein, Total 6.7 g/dL (6.0-8.3); Sodium 142 mmol/L (136-145)
[2018-06-25 16:04] LABS: INR-International Normal Ratio 0.9; PTT 27.7 SEC (22.9-36.1); Prothrombin Time 12.5 SEC (12.0-14.7)
[2018-06-25] MEDS ORDERED: Acetaminophen 325 MG TAB PO PRN (16:13)
[2018-06-25] MEDS ORDERED: Ondansetron PF 4 MG/2 ML Vial IVP PRN (16:13)
[2018-06-25] MEDS ORDERED: Labetalol HCl 100 MG/20 ML VIAL SLOW IVP PRN (16:13)
[2018-06-25] MEDS ORDERED: Milk Of Magnesia 30 ML UDCUP PO PRN (16:13)
[2018-06-25] MEDS ORDERED: Mag-Al 1200 mg/1200 mg/30 ML UDCUP PO PRN (16:13)
[2018-06-25] MEDS ORDERED: Morphine 4 MG/ML VIAL SLOW IVP PRN (16:19)
[2018-06-25] MEDS ORDERED: Acetaminophen/Codeine 30-300mg Tablet PO PRN (16:19)
--- NOTE | 2018-06-25 17:12 | HP ---
HISTORY OF PRESENT ILLNESS: This is a 57-year-old male, who is known to us for a right-sided craniotomy with right frontal GBM resection in March 2017, who presents to the emergency department for increased left-sided weakness, confusion, and slurred speech. Following his surgery, he was treated by Oncology with a round of radiation as well as Temodar. He reports that following these treatments, he was doing well until a few weeks ago when he developed gradual return of left-sided weakness and slurred speech. He was seen in clinic last week by us with a repeat MRI of the brain with and without contrast, which is notable for recurrent right frontal GBM with surrounding vasogenic edema and midline shift. He was started on Decadron 2 mg t.i.d. and referred to [facility] for further treatment as we have no further recommendations for surgery at this time. He had been working on getting an appointment with [facility] when he had acute worsening of his left-sided weakness and slurred speech with addition of some confusion per his family, and was therefore brought to [facility] Emergency Department for further evaluation. CT head, noncontrast was done on arrival, which is notable for significant right frontal vasogenic edema as well as small areas of hemorrhage within the right-sided GBM. He was treated with 10 mg of IV Decadron in the emergency department. He has a GCS of 15 in the ER and left- sided weakness which seems fairly baseline with his prior exams. His blood pressure is well controlled in the emergency department, and he has normal platelet count and coags. PAST MEDICAL HISTORY: Glioblastoma, right frontal; seizures; anxiety. PAST SURGICAL HISTORY: Right-sided craniotomy with tumor resection in March of 2017, bilateral carpal tunnel surgery. SOCIAL HISTORY: The patient lives at home. He does not drink alcohol. He is a former tobacco user. He smokes marijuana 2 to 3 times per week. ALLERGIES: HE HAS NO KNOWN DRUG ALLERGIES. REVIEW OF SYSTEMS: Per HPI. PHYSICAL EXAMINATION: VITAL SIGNS: BP is 120/78, pulse is 58, respiration rate is 15, temperature is 97.8. He is 98% on room air. CONSTITUTIONAL: Awake, alert, in no acute distress. GCS 15. HEENT: Head, normocephalic and atraumatic. He is noted to have left-sided facial droop. Eyes, PERRLA. Extraocular movements are intact. ENT; oral mucosa is pink, intact, and moist. He has slightly slurred speech. NECK: Nontender to palpation. Free active range of motion. No meningismus or nuchal rigidity. RESPIRATORY: Symmetric chest expansion. No evidence of dyspnea. CARDIOVASCULAR: Regular rate and rhythm. MUSCULOSKELETAL: No obvious deformities. Symmetric pulses. He is generally weak on the left side throughout, 4-/5. NEUROLOGIC: GCS is 15. A and O x4. Diffuse left-sided weakness, which is mild , 4-/5, left-sided facial droop, slightly slurred speech. ASSESSMENT AND PLAN: This is an unfortunate 57-year-old male, wtih PMH right frontal GBM, status post resection in March 2017, which has recently had recurrence as seen on recent MRI of the brain with and without contrast last week. His repeat CT today shows significant vasogenic edema and midline shift with small area of hemorrhage within the lesion. We will plan to admit the patient for close monitoring and frequent neuro checks. We will avoid any anticoagulation. I have started him on Decadron 4 mg q.6h and famotidine for GI protection. Will repeat am CT head. I have discussed this plan with Dr. Dacosta, who is in agreement. Job ID: [id number] [facility]
[2018-06-25 17:23] LABS: Bilirubin Negative (Negative); Blood, Urine Negative (Negative); Clarity CLEAR (Clear); Glucose, Urine (Dipstick) Negative (Negative); Leukocyte Negative (Negative); Nitrite Negative (Negative); Protein, Urine (Dipstick) Negative (Neg-Trace); Specific Gravity, Urine 1.023 (1.002-1.036)
[2018-06-25 17:41] LABS: Amphetamine Not Detected (NotDetected); Barbiturates Screen Not Detected (NotDetected); Benzodiazepine Screen Not Detected (NotDetected); Cocaine Metabolite Screen Detected (NotDetected); Medtox Control Line Valid? VALID (VALID); Medtox Reader # READER 4; Methadone Not Detected (NotDetected); Methamphetamine Not Detected (NotDetected); Opiate Screen Not Detected (NotDetected); Oxycodone Screen Not Detected (NotDetected); Phencyclidine (PCP) Not Detected (NotDetected); THC/Cannabinoid Screen Detected (NotDetected); Tricyclic Screen Not Detected (NotDetected)
[2018-06-25] MEDS ORDERED: Dexamethasone 4 mg/ml Vial ONE (18:33)
[2018-06-25] MEDS: Dexamethasone 4 mg/ml Vial SLOW IVP SCH ×2 (18:38→23:17)
[2018-06-25] MEDS: Sodium Chloride 0.9% 1,000 ML IV SCH (20:52)
[2018-06-25] MEDS: Famotidine/PF 20 mg/2ml Vial SLOW IVP SCH (20:54)
[2018-06-25] MEDS: levETIRAcetam 500 MG TAB PO SCH (20:58)
[2018-06-25 21:16] VITALS: BMI 22.6
[2018-06-26] MEDS: Dexamethasone 4 mg/ml Vial SLOW IVP SCH (05:48)
[2018-06-26 07:56] VITALS: BP 113/72; TEMP 97.3
--- NOTE | 2018-06-26 08:34 | CT ---
CT HEAD NONCONTRAST: Date: 06/26/18 COMPARISON: Previous day. INDICATION: History of intracranial mass with hemorrhage. FINDINGS: Redemonstration of partially hyperdense but otherwise somewhat CT occult lesion of the right cerebral hemisphere with a large volume of surrounding vasogenic edema. The hyperdensity related to the mass indicative of recent onset hemorrhage is grossly stable in morphology. Degree of leftward midline facundo ft at level of septum pellucidum, measuring 8 mm. IMPRESSION: Grossly stable exam with significant volume vasogenic edema, mass effect, and associated leftward sub falcine herniation related to underlying hemorrhagic mass. POS: SRINIVASAN
[2018-06-26] MEDS: Sodium Chloride 0.9% 1,000 ML IV SCH (08:39)
[2018-06-26] MEDS: Famotidine/PF 20 mg/2ml Vial SLOW IVP SCH (08:40)
[2018-06-26] MEDS: levETIRAcetam 500 MG TAB PO SCH (08:40)
--- NOTE | 2018-06-26 23:39 | DIS ---
DATE OF ADMISSION: 06/25/2018 DATE OF DISCHARGE: 06/26/2018 HOSPITAL COURSE: The patient is a 57-year-old male, known to us for right-sided craniotomy with right frontal GBM resection in March 2017. He recently presented to the emergency department for worsening left-sided weakness, slurred speech, and intermittent confusion. His repeat CT scan showed significant vasogenic edema, midline shift, and small amount of hemorrhage within the right frontal lesion. His new MRI last week in our office was notable for recurrence of disease as well at that time. He was admitted to the stroke unit, where his symptoms did improve some with increase in his steroid dose to 4 mg q.6 Dec[address] His a[address] CT was also stable. Dr. Dacosta met with the patient and felt that it was appropriate for him to be discharged on increased steroid to a dose with followup with [facility]. We will plan to follow up with the patient on a p.r.n. patient. I have discussed this plan with the patient's family and they are in agreement. Job ID: [id number]
--- NOTE | 2018-06-27 07:47 | PRG ---
DATE OF SERVICE: I visited with Mr. Underwood in the hospital. The patient was seen and examined. Agree with Lety Baugh's evaluation, 06/25/2018. The patient is well known to me from previous resection of a right-sided glioblastoma. He was treated with postoperative adjuvant treatment including radiation therapy and Temodar. He has had recent decline functionally and with left-sided motor deficit. Recently evaluated him in the office and felt that his MRI suggested recurrent right-sided tumor. I do not feel there are any reasonable palliative options at this stage, and at the patient's request, I had referred him to [facility] to see if he will qualify for any experimental protocols. He has been on 2 mg t.i.d. of Decadron, but was brought into the hospital last night with progressive functional decline. We initiated Decadron 4 mg q.6 hours and he is doing much better this morning. The patient's CT scan revealed small amount of hemorrhage within the tumor cavity. A repeat CT scan this morning is stable. IMPRESSION/PLAN: We will discharge the patient on four q.6 of Decadron. Obviously, this dose of Decadron is not sustainable, but it seemed that the lower dose was not effective. I believe that the patient is likely to have continued decline and ultimately fatal progression. I have discussed this with him and his family members, although I do not believe they have a very realistic understanding of the situation at this stage. We will continue to support referral to [facility] and will discharge today. Job ID: [id number]
== END 2018-06-26 10:45 | disposition home or self-care (01) | DRG 54 ==
LOC: ERS 14:48 → 2SE 19:23
PROVIDERS: ADMIT Neurological Surgery; ATTEND Neurological Surgery
DX: C71.1 Malignant neoplasm of frontal lobe (principal); G93.6 Cerebral edema; I61.8 Other nontraumatic intracerebral hemorrhage; F41.9 Anxiety disorder, unspecified; G40.909 Epilepsy, unspecified, not intractable, without status epilepticus; F12.90 Cannabis use, unspecified, uncomplicated; Z87.891 Personal history of nicotine dependence; Z98.890 Other specified postprocedural states
CPT/HCPCS: 36415; 36416; 70450; 71045; 80053; 80306; 80307; 81003; 82140; 82550; 83690; 83880; 84146; 84484; 85025; 85610; 85730; 93005; 94760; J1100; J2405; S0028